=== PATIENT | female | born 2000 | race African-American/Black ===

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

== ENCOUNTER 2021-06-15 09:30 | Emergency (ER) | payer OTHER, SELFPAY ==
[2021-06-15 09:40] VITALS: BP 136/111; PULSE 97; RESP 20; TEMP 36.8; O2SAT 100
--- NOTE | 2021-06-15 10:04 | ED.GENADULT ---
HPI - General Adult General Chief complaint: Skin/Abscess/Foreign Body Stated complaint: Boil on buttox Source: patient Mode of arrival: ambulatory Limitations: no limitations History of Present Illness HPI narrative: Patient is a 20-year-old -[place] female who presents to the [facility] via POV for evaluation of a skin problem located on left buttocks that has been present for 5 days. She reports that area is tender and swollen. Nothing improves symptoms and sitting worsen symptoms. Related Data Allergies Allergy/AdvReac Type Severity Reaction Status Date / Time No Known Allergies Allergy Verified 06/15/21 10:08 Review of Systems Review of Systems: Denies injury. Pertinent negatives fever, chills, sweats, malaise, poor p.o. intake, change in appetite, headache, LOC, dizziness, streaking, erythema, warmth, drainage, numbness, tingling, loss of sensation, foreign body sensation, deformity, sob, chest pain, and heart palpitations/murmurs. [facility] Past Medical History Medical History (Updated 06/15/21 @ 10:14 by RACHEL Mann, ) Healthy adult Family History Family History Father Hypertension Mother Hypertension Social History Social History Smoking status: Never smoker Second hand tobacco smoke exposure: No Alcohol intake: never Substance use: never Substance use type: does not use Spiritual care concerns: No Comments I have reviewed and agree with the patient's past medical, surgical, social, and family hx as documented by the RN. There is no relevant family history pertinent to the presenting complaint. Exam Narrative: GENERAL: Well-appearing, well-nourished, and in no acute distress. HEAD: Normocephalic, atraumatic. No facial swelling appreciated. EYES: PERRLA and EOMI. No evidence of erythema, swelling, or drainage. ENT: Nares clear, no rhinorrhea or epistaxis.Mucous membranes moist and pink. Uvula is midline without erythema and swelling. No evidence of obstruction, petechial rash, cobblestoning, lesions, ulcers, erythema, swelling, exudates, peritonsillar abscess, tenting, or drooling. Breath odor and voice normal. NECK: Supple. No Lymphadenopathy or nuchal rigidity appreciated. CHEST: Bilateral lung schrader are clear to auscultation. No respiratory distress. No evidence of cough or pleuritic cp upon examination. HEART: Regular rate and rhythm. No murmur, gallop, or rub heard. EXTREMITIES: Normal range of motion. No edema. SKIN: Warm, dry. No evidence of 1-1/2 x 1-1/2 cm of cellulitis noted to left gluteal fold. No evidence of abscess, streaking, induration, abrasions/lacerations, petechiae, hematoma, contusion, drainage, or bleeding. NEURO: No focal deficits. Alert and oriented x3. SPECIAL OBSERVATIONS: Smiling. Laughing. No evidence of discomfort. C/O of of proportion to exam. Eating XXX. Running around. Tolerates food/fluids. Course Vital Signs Vital signs: Vital Signs Temperature 98.3 F 06/15/21 09:40 Pulse Rate 97 06/15/21 09:40 Respiratory Rate 20 06/15/21 09:40 Blood Pressure 136/111 H 06/15/21 09:40 Pulse Oximetry 100 06/15/21 09:40 Temperature 98.3 F 06/15/21 09:40 Pulse Rate 97 06/15/21 09:40 Respiratory Rate 20 06/15/21 09:40 Blood Pressure 136/111 H 06/15/21 09:40 Pulse Oximetry 100 06/15/21 09:40 Due to an elevated blood pressure, I had a detailed discussion with the patient and/or guardian regarding the need for follow-up with their primary care provider within the next 3-4 days. Patient verbalized understanding and agreed. Medical Decision Making Differential Diagnosis Differential Diagnosis: Contact/allergic dermatitis, atopic dermatitis, psoriasis, cellulitis, tinea infection, parasite infection, shingles Medical Records Medical records reviewed: Yes I reviewed the external patient's medical records. Vital S
== END 2021-06-15 10:20 | disposition home or self-care (01) ==
PROVIDERS: Emergency Provider Nurse Practitioner Family; PCP Family Medicine
DX: L03.317 Cellulitis of buttock (principal)
CPT/HCPCS: 99213; G0463

== ENCOUNTER 2023-10-22 11:40 | Emergency (ER) | payer OTHER, SELFPAY ==
[2023-10-22 11:57] VITALS: BP 134/64; PULSE 72; RESP 16; TEMP 37; O2SAT 99
--- NOTE | 2023-10-22 13:00 | ED.DENTAL ---
HPI - Dental/Oral General Chief complaint: Dental/Oral Stated complaint: left side tooth/mouth pain Time Seen by Provider: 10/22/23 13:00 Source: patient, RN notes reviewed and old records reviewed Mode of arrival: ambulatory Limitations: no limitations History of Present Illness HPI Narrative: 22 year old female who presents to [facility] care with complaints of left sided wisdom tooth pain and pain to mouth in area where wisdom tooth trying to come in.Patient reports that wisdom tooth has been trying to come in for about a month with increased pain for past 3-4 days. Patient reports that she has been taking Tylenol and Ibuprofen for her discomfort. Patient does have full upper and lower braces. MD Complaint: tooth pain (gum pain and pain to side of mouth) Location: Tooth # (17) Onset (ago): day(s) (increased pain for 3-4 days) Treatment prior to arrival: oral analgesic and other (mouth wash) Related Data Home Medications Medication Instructions Recorded Confirmed multivitamin with minerals 1 tablet PO DAILY 12/13/21 10/22/23 (Hair,Skin and Nails tablet) Allergies Allergy/AdvReac Type Severity Reaction Status Date / Time No Known Allergies Allergy Verified 10/22/23 12:13 Review of Systems Review of Systems: CONSTITUTIONAL: Denies fever, chills, or sweats. ENT: Denies rhinorrhea, congestion, sore throat, or otalgia. Reports dental pain #17 tooth which is trying to come in with pain to side of mouth near #17 tooth CARDIOVASCULAR: Denies chest pain, palpitations, or edema. RESPIRATORY: Denies cough or dyspnea. SKIN: Denies rash or itching. MUSCULOSKELETAL: Denies myalgia. NEUROLOGIC: Denies headache All systems reviewed & are unremarkable except as noted in HPI and below [facility] [place] Past Medical History Medical History Healthy adult Family History Family History Father Hypertension Mother Hypertension Social History Social History Smoking status: Never smoker Second hand tobacco smoke exposure: No Alcohol intake: never Substance use: never Substance use type: does not use Living arrangements: with family Spiritual care concerns: No Comments At time of signature, agree with nursing past medical, surgical, social and family history. There is no relevant family history pertinent to the presenting complaint Exam Narrative: GENERAL: Well-appearing, well-nourished, and in no acute distress. HEAD: Normocephalic, atraumatic. EYES: PERRLA and EOMI. ENT: Nares clear, no rhinorrhea or epistaxis. Mucous membranes moist. 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 NECK: Supple. no lymphadenopathy CHEST: Clear to auscultation. No respiratory distress. SAO2 99% on room air HEART: Regular rate and rhythm. No murmur heard. Normal peripheral pulses. SKIN: Warm, dry, no rash. NEURO: No focal deficits. Alert and oriented x3. Course Course Emergency Course: Patient is aware of diagnosis, understands and agrees to treatment plan. Anticipatory guidance given. Patient agrees to follow-up as directed and is aware of reasons to seek care at the emergency department. Portions of this record may have been created with voice recognition software Level of Care: Express Care Visit Vital Signs Vital signs: Vital Signs Temperature 37.0 C 10/22/23 11:57 Pulse Rate 72 10/22/23 11:57 Respiratory Rate 16 10/22/23 11:57 Blood Pressure 134/64 10/22/23 11:57 Pulse Oximetry 99 10/22/23 11:57 Oxygen Delivery Room Air 10/22/23 11:57 Temperature 37.0 C 10/22/23 11:57 Pulse Rate 72
== END 2023-10-22 13:21 | disposition home or self-care (01) ==
PROVIDERS: Emergency Provider Registered Nurse; PCP Family Medicine
DX: K01.1 Impacted teeth (principal)
CPT/HCPCS: 99213; G0463

== ENCOUNTER 2025-07-17 13:34 | Emergency (ER) | payer OTHER, SELFPAY ==
[2025-07-17 13:42] VITALS: BP 125/65; PULSE 76; RESP 18; TEMP 36.3; O2SAT 100
--- NOTE | 2025-07-17 13:44 | ED_ITS ---
HPI - Extremity Injury (Lower) General Chief Complaint: Extremity Injury, Lower Stated Complaint: Right Foot Toe Pain Source: patient Mode of arrival: ambulatory Limitations: no limitations History of Present Illness HPI Narrative: patient is a 24-year-old female who presents with left great toe pain for 2 weeks. Patient states she had on a dresser and then trimmed the broken toenail too short. Patient states she clipped some skin. Patient has been using hydrogen peroxide and Neosporin Related Data Allergies Allergy/AdvReac Type Severity Reaction Status Date / Time No Known Allergies Allergy Verified 07/17/25 13:43 Review of Systems 2 Review of Systems: All systems reviewed & are unremarkable except as noted in HPI and below Constitutional: Constitutional: Denies body ache(s), Denies chills, Denies fatigue, Denies fever(s), Denies headache(s), Denies malaise and Denies weakness Eyes: Eyes: Denies blurry vision, Denies irritation and Denies loss of vision ENT: Denies otalgia, Denies headache(s), Denies nasal discharge, Denies sinus pain and Denies sore throat Cardiovascular: Cardiovascular: Denies chest pain, Denies irregular heart rhythm and Denies dyspnea Respiratory: Respiratory: Denies dyspnea Gastrointestinal: Gastrointestinal: Denies abdominal pain, Denies melena, Denies hematochezia, Denies diarrhea, Denies nausea and Denies vomiting Musculoskeletal: Musculoskeletal: Denies back pain, Denies myalgias and Denies arthralgias Integumentary/Breasts: Skin/Breast: Denies pruritus, Denies rash and Reports wounds Neurologic: Denies headache(s), Denies loss of vision and Denies weakness Psychiatric: Psychiatric: Reports no additional psychiatric complaints Endocrine: Endocrine: Denies fatigue [facility] Past Medical History Medical History Healthy adult Family History Family History Father Hypertension Mother Hypertension Social History Social History Smoking status: Never smoker Second hand tobacco smoke exposure: No Alcohol intake: never Substance use: never Substance use type: does not use Living arrangements: with family Spiritual care concerns: No Comments At time of signature, agree with nursing past medical, surgical, social and family history. There is no relevant family history pertinent to the presenting complaint. Exam 2 Const: General: cooperative, healthy appearing, comfortable, no acute distress and well nourished Nutritional Appearance: well nourished O rientation/consciousness: patient oriented x3 Limitations: no limitations HENMT: Head: normal to inspection, normocephalic and atraumatic Ears: h earing grossly normal bilaterally and external ears normal Face/Nose/Sinus: N ormal external nose present, normal facial exam and face symmetric Face and sinus: normal facial exam and face symmetric Mouth: Yes lip normal Eyes: General: appearance normal, both eyes and all related structures A lignment and Position: alignment normal and position normal Periorbital: p eriorbital findings normal Eyelids: eyelids normal Pupils: Equal, round and reactive pupils present EOM: EOMs intact bilaterally Neck: Neck: normal visual inspection, full ROM and supple Chest: Chest palpation & inspection: normal inspection of the chest Resp: Effort & Inspection: normal respiratory effort and able to speak in complete sentences Auscultation: clear to auscultation bilaterally Cardio: Rate: regular rate Rhythm: regular rhythm Heart sounds: S1 normal heart sound present and S2 normal heart sound present GI: Inspection: normal to inspection Skin: General skin exam: normal color and no rashes or lesions noted Neuro: General: patient oriented x3 and moves all extremities Cranial nerves: Yes Equal, round and reactive pupils present Speech: normal speech Gait exam (Neuro): Normal gait present Extrem: General: normal to inspection, full ROM and no edema Left lower extremity: foot Details: normal capillary refill, toes with normal ROM and warmth Location: of the great toe Location: at the distal phalanx; no ecchymosis Ankle/foot/toe images: 1. wound with scab and surrounding erythema Psych: Appearance: grossly normal and well kempt Mental Status: mental status grossly normal Speech and movement: Normal speech and movement present Affect: normal affect Attitude: cooperative Thought process: Normal thought process present Course Course Emergency Course: Patient is aware of diagnosis, understands and agrees to treatment plan. Anticipatory guidance given. Patient agrees to follow-up as directed and is aware of reasons to seek care at the emergency department. Portions of this record may have been created with voice recognition software Level of Care: Express Care Visit Vital Signs Vital signs: Vital Signs Temperature 36.3 C L 07/17/25 13:42 Pulse Rate 76 07/17/25 13:42 Respiratory Rate 18 07/17/25 13:42 Blood Pressure 125/65 07/17/25 13:42 Pulse Oximetry 100 07/17/25 13:42 Oxygen Delivery Room Air 07/17/25 13:42 Temperature 36.3 C L 07/17/25 13:42 Pulse Rate 76 07/17/25 13:42 Respiratory Rate 18 07/17/25 13:42 Blood Pressure 125/65 07/17/25 13:42 Pulse Oximetry 100 07/17/25 13:42 Oxygen Delivery Room Air 07/17/25 13:42 Reviewed MDM - Extremity Injury (Lower) MDM Narrative Medical decision making narrative: Pt well hydrated appearing, in no respiratory distress, hemodynamically stable. Recommend supportive care. The patient is stable at time of discharge the clinical impression was discussed and the patient was given the opportunity to ask questions, which were addressed as completely as possible given the information available at present. Anticipatory guidance and return to care precautions were discussed and the importance of primary care follow-up was stressed and encouraged. The patient voiced understanding of the plan, indications to return, and the need for follow-up. Exam findings show no acute concerns or changes Patient is appropriate for outpatient treatment and follow-up. differential diagnosis: Infected wound, cellulitis, paronychia, ingrown toenail Medical Records Attestation: I reviewed the patient's medical records. Discharge Plan Discharge Clinical Impression: Infected wound Patient Disposition: Home Condition: Stable Instructions: Acute Wounds (ED) Additional Instructions: Apply Bactroban after warm soaks BID. Take antibiotics as prescribed. Keep wound covered. Go to the emergency department if you have worsening redness, swelling or pus. Patient Language: Vincentian Prescriptions: New cephalexin 500 mg capsule 500 mg PO QID 7 Days Qty: 28 0RF Follow-up/Referrals: Meliton,MD Marlee [Primary Care Provider, Family Practice] - 3 Days Jacobo Walker DPM [Physician, Podiatry] - 3 Days Referral Note: toe infection Stand Alone Forms: Work/School Release IP Time of Disposition: 14:00
== END 2025-07-17 14:06 | disposition home or self-care (01) ==
PROVIDERS: Emergency Provider Nurse Practitioner Family; PCP Family Medicine
DX: S91.101A Unspecified open wound of right great toe without damage to nail, initial encounter (principal); L08.9 Local infection of the skin and subcutaneous tissue, unspecified; X58.XXXA Exposure to other specified factors, initial encounter
CPT/HCPCS: 99213; G0463